=== PATIENT | female | born 1955 | race American Indian/Alaskan Native ===

== ENCOUNTER 2016-10-07 09:00 | Outpatient (CLI) | payer OTHER ==
--- NOTE | 2016-10-07 13:07 | Mammography Report ---
Screening mammogram: The patient is post breast reduction surgery. The breast pattern is generally fatty replaced. There is extensive number of rounded and generally homogeneous populations of calcifications in both breasts. No focal mass nor architectural distortion. The findings are unchanged compared to her prior study in 2014. CAD used. Impression: Stable breast pattern. Recommendation: Annual mammogram followup. BI-RADS CATEGORY: 1 = Negative ACR BI-RADS MAMMOGRAPHIC CODES: 0 = Needs additional imaging evaluation; 1 = Negative; 2 = Benign; 3 = Probably benign; 4 = Suspicious; 5 = Malignant; 6 = Known biopsy-proven malignancy COMMENT: 1. Dense breast tissue, i.e., adenosis, fibrocystic changes, etc., may obscure an underlying neoplasm. 2. Approximately 10% of cancers are not detected with mammography. 3. A negative mammography report should not delay biopsy if a clinically suspicious mass is present.
== END 2016-10-07 09:01 | disposition home or self-care (01) ==
LOC: MAMMO 09:00
PROVIDERS: ATTEND Family Medicine Adult Medicine
DX: Z12.31 Encounter for screening mammogram for malignant neoplasm of breast (principal)
CPT/HCPCS: 77067; G0202

== ENCOUNTER 2017-04-13 09:18 | Emergency (ER) | payer OTHER ==
[2017-04-13 10:05] LABS: Basophils % (Auto) 0.7 % (0.0-1.8); Eosinophils % (Auto) 2.3 % (0.0-4.3); Hematocrit 35.9 % (30.3-42.9); Hemoglobin 12.3 gm/dl (10.1-14.3); Mean Corpuscular HGB Conc 34 % (30-34); Mean Corpuscular Hemoglobin 31 pg (28-32); Mean Corpuscular Volume 89 fl (79-97); Platelet Count 239 K/mm3 (140-440); Red Blood Count 4.04 M/mm3 (3.65-5.03); Red Cell Distribution Width 13.7 % (13.2-15.2); White Blood Count 8.7 K/mm3 (4.5-11.0)
[2017-04-13 10:23] LABS: Albumin 4.1 g/dL (3.9-5); Albumin/Globulin Ratio 1.1 %; Bilirubin,Total 0.7 mg/dL (0.1-1.2); Potassium 4.3 mmol/L (3.6-5.0); Total Protein 7.9 g/dL (6.3-8.2)
[2017-04-13 11:10] LABS: Bilirubin,Urine NEG (Negative); Blood,Urine MOD (Negative); Ketones,Urine NEG (Negative); Leukocyte Esterase,Urine NEG (Negative); Mucus,Urine FEW /HPF; Nitrite,Urine NEG (Negative); Protein,Urine <15 mg/dL mg/dL (Negative); Urobilinogen,Urine < 2.0 mg/dL (<2.0)
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
[2017-04-13] MEDS ORDERED: TORADOL IV ONE (14:36)
[2017-04-13] MEDS ORDERED: ZOFRAN ODT PO ONE (14:37)
--- NOTE | 2017-04-13 14:59 | Cat Scan Report ---
FINAL REPORT PROCEDURE: CT ABDOMEN PELVIS WO CON TECHNIQUE: Computerized axial tomography of the abdomen and pelvis was performed without intravenous contrast. This study is performed without intravascular contrast material and its sensitivity for abdominal and pelvic pathology, including neoplasms, inflammation, abscess, free fluid, thrombosis, arterial dissection and infarction, is reduced compared with a contrast enhanced study. HISTORY: Right flank pain COMPARISON: No prior studies are available for comparison. FINDINGS: Visualized lower thorax: There is posterior pericardial thickening or fluid present, measuring up to 5 millimeters in thickness. Liver: Normal size and attenuation. Spleen: Normal size and attenuation. Gallbladder and biliary system: Calcified gallstones are present within the gallbladder lumen. No biliary ductal dilatation identified. Pancreas: Normal. Adrenals: Normal. Kidneys: There is moderate right hydronephrosis. The proximal ureter is significantly dilated. No ureteral calculi are seen. Right renal calculi are present, measuring up to 4 millimeters. Nonobstructive left renal calculi are present. Largest is in the left kidney lower pole, measuring up to 12 millimeters. No calculi are seen in the left ureter GI tract: Appendix is visualized and does not appear inflamed. Sutures are noted in the stomach. Lymph nodes and mesentery: Normal. Vasculature: Normal. Bladder: Normal. Reproductive organs: Uterus is not visualized. Peritoneum: No free fluid. Musculoskeletal structures: No significant abnormality. Other: None. IMPRESSION: There is significant right hydronephrosis and dilatation of the proximal right ureter. No ureteral calculi are seen. Although findings could be related to recently passed calculus, cannot exclude an obstructing ureteral lesion. No gross mass is seen, however recommend follow-up to exclude a ureteral stricture or mass causing obstruction. Bilateral renal calculi are present. Cholelithiasis. Pericardial thickening or fluid
[2017-04-13] MEDS ORDERED: NACL 0.9% 1000 ML 1,000 ML IV ONE (15:25)
[2017-04-13] MEDS ORDERED: FLOMAX PO ONE (17:00)
[2017-04-13 17:10] VITALS: BP 140/84
== END 2017-04-13 17:33 | disposition home or self-care (01) ==
LOC: ED 09:18
DX: N20.0 Calculus of kidney (principal); I10 Essential (primary) hypertension; Z98.890 Other specified postprocedural states; Z88.6 Allergy status to analgesic agent
CPT/HCPCS: 36415; 74176; 80053; 81001; 83690; 85025; 87086; 96361; 96374; 99284; J1885; J7030; Q0162

== ENCOUNTER 2017-04-17 09:59 | Day surgery (SDC) | payer OTHER ==
[~2017-04-17 09:59] MED LIST: ANCEF/STERILE WATER 2 GM/20 ML IV NR
--- NOTE | 2017-04-17 10:54 | Anesthesia Day of Surgery ---
Anesthesia Day of Surgery - Day of Surgery Patient Examined: Yes Patient H&P Reviewed: Yes Patient is NPO: Yes
--- NOTE | 2017-04-17 10:54 | Anesthesia Consultation ---
Anesthesia Consult and Med Hx Date of service: 04/17/17 - Airway Anesthetic Teeth Evaluation: Good ROM Head & Neck: Adequate Mental/Hyoid Distance: Adequate Mallampati Class: Class II Intubation Access Assessment: Probably Good - Pulmonary Exam CTA: Yes - Cardiac Exam Cardiac Exam: RRR - Pre-Operative Health Status ASA Pre-Surgery Classification: ASA2 Proposed Anesthetic Plan: General - Pulmonary Hx Smoking: No Hx Sleep Apnea: Yes (DX SLEEP APNEA WITH CPAP USE) - Cardiovascular System Hx Hypertension: No Hx Heart Murmur: Yes (CAUSES NO PROBLEMS) - Endocrine Hx Non-Insulin Dependent Diabetes: No - Hematic Hx Anemia: Yes (NOT RECENT) - Other Systems Hx Cancer: No
[2017-04-17] MEDS ORDERED: LACTATED RINGERS 1,000 ML IV SCH (11:00)
[2017-04-17] MEDS ORDERED: VERSED IV NR (11:00)
[2017-04-17] MEDS ORDERED: PEPCID PO NR (12:00)
--- NOTE | 2017-04-17 12:06 | Short Stay Summary ---
Short Stay Documentation Date of service: 04/17/17 - History H&P: obtained from office - Allergies and Medications Current Medications: Allergies hydrocodone Allergy (Verified 04/15/17 10:49) Shortness of Breath oxycodone [From Percocet] Allergy (Verified 04/15/17 10:49) Shortness of Breath SOB AND ITCHING Home Medications Medication Instructions Recorded Confirmed Last Taken Type Omeprazole Magnesium [PriLOSEC Otc] 20 mg PO QDAY #14 tablet.dr 04/15/16 Unknown Rx Ondansetron [Zofran TAB] 4 mg PO Q6HR PRN #14 tablet 04/15/16 04/15/17 Unknown Rx Tamsulosin HCl [Flomax] 0.4 mg PO DAILY #10 cap.er.24h 04/13/17 04/15/17 Unknown Rx traMADol [Ultram] 50 mg PO Q6HR PRN #20 tablet 04/13/17 04/15/17 Unknown Rx Tobramycin/Lotepred Etab [Zylet 1 - 2 drop OP TID 04/15/17 04/15/17 Unknown History Eye Drops 0.5/0.3%] Travoprost [Travatan Z] 1 drop OP QHS 04/15/17 04/15/17 Unknown History Active Medications Cefazolin Sodium (Ancef/Sterile Water 2 Gm/20 Ml) 2 gm IV PREOP NR Stop: 04/17/17 23:00 Lactated Ringer's (Lactated Ringers) 1,000 mls @ 100 mls/hr IV DIRECT LUIS Last Admin: 04/17/17 11:55 Dose: 100 mls/hr Midazolam HCl (Versed) 2 mg IV PREOP NR Stop: 04/17/17 23:59 Last Admin: 04/17/17 11:57 Dose: 2 mg - Brief post op/procedure progress note Date of procedure: 04/17/17 Pre-op diagnosis: toño renal stones, right hydro/pain Post-op diagnosis: other Procedure: cysto,bilr rpg, right urs, stent 6x26, left eswl Anesthesia: GETA Findings: right upj stenosis, left lower pole stone Surgeon: GREGORIO VAZ Estimated blood loss: none Condition: stable - Hospital course Hospital course: or pacu home - Disposition Condition at discharge: Good Disposition: DC-01 TO HOME OR SELFCARE Short Stay Discharge Plan Activity: advance as tolerated Diet: advance as tolerated Follow up with: ZAYDA VIRK MD [Staff Physician] - 7 Days
[2017-04-17] MEDS ORDERED: ZOFRAN ONE ×2 (13:52→17:39)
[2017-04-17] MEDS ORDERED: XYLOCAINE MPF 2% ONE (13:52)
[2017-04-17] MEDS ORDERED: SUBLIMAZE ONE ×2 (13:52→15:10)
[2017-04-17] MEDS ORDERED: DIPRIVAN 10 MG/ML IV ONE (13:53)
[2017-04-17] MEDS ORDERED: LACTATED RINGERS 1,000 ML ONE (14:33)
[2017-04-17] MEDS ORDERED: WATER FOR IRRIG STERILE IR ONE (14:45)
[2017-04-17] MEDS ORDERED: ePHEDrine SULFATE ONE (15:22)
[2017-04-17] MEDS ORDERED: ZOFRAN IV PRN (17:53)
[2017-04-17 18:11] VITALS: BP 163/89
--- NOTE | 2017-04-17 19:22 | Post Anesthesia Evaluation ---
- Post Anesthesia Evaluation Patient Participated: Yes Airway Patent: Yes Stable Respiratory Function: Yes Nausea/Vomiting: No Temp > 96.8F: Yes Pain Manageable: Yes Adequeate Hydration: Yes Anesthesia Complications: No Block Receding Appropriately: Not Applicable Patient on Ventilator: No
--- NOTE | 2017-04-18 09:01 | Operative Report ---
PREOPERATIVE DIAGNOSES: 1. Right hydronephrosis. 2. Right flank pain. 3. Left renal lower pole 12 mm stone. POSTOPERATIVE DIAGNOSES: 1. Right hydronephrosis. 2. Right ureteropelvic junction obstruction. 3. Rectocele. 4. Left renal lower pole stone. 5. Radiopaque density at the level at L3 medial to the left ureter on retrograde. PROCEDURES: 1. Bilateral RPG, right ureteroscopy, flexible and rigid and right stent placement 6 x 26 double J staged for future removal for the diagnosis of right hydronephrosis and flank pain. 2. Left renal ESWL for the diagnosis of left renal stone. SURGEON: Tristen Garnica M.D. ANESTHESIA: General. SPECIMENS: None. ESTIMATED BLOOD LOSS: Minimal. COMPLICATIONS: None. IMPLANTS: None. FINDINGS: On right ureteroscopy, the UPJ appeared to be stenosed with [id number] stricture likely chronic. Inspection of the anterior upper and lower pole calyces, renal pelvis, and ureter demonstrated no tumors or lesions or no suspicious area. On fluoroscopy, there was at the level of L3 a radiopaque density that appeared to be possible left ureteral stone. Retrograde ureterogram confirmed that this radiopaque density was medial to the left ureter and there is only a stone in the lower pole. CLINICAL INDICATIONS: The patient was counseled by her primary urologist and by me. Films were all reviewed, coordinated plan, had antibiotics and SCDs and the patient desired to proceed. The patient was having right flank pain. DESCRIPTION OF PROCEDURE: The patient was transferred to the OR suite in supine position, placed in the cystoscopy suite in supine position, anesthesia, dorsal lithotomy, prepped and draped in standard fashion. At this point, a 22-[place] cystoscope was passed. Pancystoscopy with 30- and 70-degree lens demonstrated no tumors, lesions, or other abnormality. Retrograde pyelogram confirmed with 8-[place] cone tip catheter. Contrast demonstrated normal left distal ureter. As we approached the proximal ureter, there was a narrowing with a dilated, long UPJ or proximal ureter with hydronephrosis and dilated calices moderate to severe. At this point, a Glidewire was passed up to the right renal pelvis. A rigid ureteroscope was passed. We were able to pass this up the entire ureter. Inspection demonstrated no tumors, lesions, or other abnormality. Once we got to this narrow portion, there was no papillary or erythema or suspicious lesion that more tissue was white, more like a scar with mild stricture. We were able to pass the rigid scope beyond this and we were into the renal pelvis, we could easily see the renal pelvis with this dilated port either its long UPJ or just a portion of the proximal ureter. At this point, a second wire was passed and right renal fluid aspirated and renal pelvis decompressed. We then passed the second Glidewire. Flexible ureteroscope was passed. We inspected the upper and lower pole calyces and renal pelvis. There was no abnormality identified. No tumors, lesions, or other abnormality proximal to the narrowed portion of the UPJ ureter. There was no lesion or other abnormality both on flexible scope or rigid scope. The scope was slowly withdrawn and inspected this narrowed area again above proximal and distal with no suspicious lesion. Scope was withdrawn. I inspected the ureter on the way down. No abnormal lesions and no stenosis beyond that point. At this point, the wire was backloaded on cystoscope. A 6 x 26 double-J stent was passed over the wire under direct and fluoroscopic visualization. When the wire and string were removed, nice proximal and distal J staged for future removal. At this point, we did see at the L3 level a radiopaque density and we felt that she may have a left ureteral stone. Contrast was injected gently and the ureter filled and this radiopaque density was medial to the left ureter. At this point, the patient was placed back in the supine position after being cleaned. She was transferred to the [facility] and transferred from the cystoscopy suite to room 5 to the lithotripter suite to treat her second diagnosis. At this point, the patient was placed on the table in the supine position. Biplanar fluoroscopy was used to target the stone on the left side, the opposite side, in the lower pole. A total of 2500 shocks were delivered at a maximum of 5.0 kilovolts. Intermittent repositioning was done as necessary to keep the stone with an F2 given the size of the stone. There was good result or significant spreading which appeared from the fragmentation. By the end of the procedure, the patient was awakened and transferred to PACU in good and stable condition. JOB# [id number] ATS/NTS
--- NOTE | 2017-04-19 10:36 | Fluoroscopy Report ---
14 FLUOROSCOPIC IMAGES AT RIGHT RETROGRADE PYELOGRAM: 04/17/17 CLINICAL: Ureteral stone. FINDINGS: Early Intervention Specialist images demonstrate a probable left renal calculus and a probable calculus in the mid left ureter at the L3 level. Subsequent images demonstrate retrograde opacification of a moderately dilated right intrarenal collecting system and placement of a right ureteral stent. Retrograde opacification demonstrates a nondilated left ureter. The calcification at L3 does not appear to be in the ureter. However, the ossification the left upper quadrant appears to be in a left lower pole calyx. For more detail, please refer to the operative report.
== END 2017-04-17 10:00 | disposition home or self-care (01) ==
LOC: OR 09:59
PROVIDERS: ATTEND Urology
DX: N13.2 Hydronephrosis with renal and ureteral calculous obstruction (principal); N81.6 Rectocele; Z88.1 Allergy status to other antibiotic agents
CPT/HCPCS: 50590; 52332; 74420; A4217; C1758; C1769; C2617; J0690; J2250; J2405; J2704; J3010; J7120; Q9967

== ENCOUNTER 2017-10-08 09:40 | Outpatient (CLI) | payer OTHER ==
--- NOTE | 2017-10-08 14:16 | Mammography Report ---
Screening mammogram: Routine views demonstrate a generally fatty replaced pattern. Diffuse benign-appearing calcifications are present throughout both breasts. There is no nodule no architectural distortion. No significant change since prior exams in 2015. CAD used. Impression: Stable exam. Recommendation: Annual mammogram followup. BI-RADS CATEGORY: 1 = Negative ACR BI-RADS MAMMOGRAPHIC CODES: 0 = Needs additional imaging evaluation; 1 = Negative; 2 = Benign; 3 = Probably benign; 4 = Suspicious; 5 = Malignant; 6 = Known biopsy-proven malignancy COMMENT: 1. Dense breast tissue, i.e., adenosis, fibrocystic changes, etc., may obscure an underlying neoplasm. 2. Approximately 10% of cancers are not detected with mammography. 3. A negative mammography report should not delay biopsy if a clinically suspicious mass is present.
== END 2017-10-08 09:41 | disposition home or self-care (01) ==
LOC: MAMMO 09:40
PROVIDERS: ATTEND Family Medicine Adult Medicine
DX: Z12.31 Encounter for screening mammogram for malignant neoplasm of breast (principal)
CPT/HCPCS: 77067

== ENCOUNTER 2018-01-12 06:05 | Day surgery (SDC) | payer OTHER ==
[2018-01-12] MEDS ORDERED: NACL BACTERIOSTATIC INFILTRATI ONE (07:01)
[2018-01-12] MEDS ORDERED: ANCEF/STERILE WATER 2 GM/20 ML IV NR (07:15)
[2018-01-12] MEDS ORDERED: XYLOCAINE MPF 2% ONE (07:18)
[2018-01-12] MEDS ORDERED: DILAUDID ONE ×2 (07:18→09:25)
[2018-01-12] MEDS ORDERED: ZOFRAN ONE (07:18)
[2018-01-12] MEDS ORDERED: DIPRIVAN 10 MG/ML IV ONE (07:18)
[2018-01-12] MEDS ORDERED: DECADRON ONE (07:19)
--- NOTE | 2018-01-12 07:26 | Anesthesia Consultation ---
Anesthesia Consult and Med Hx Date of service: 01/12/18 - Airway Anesthetic Teeth Evaluation: Good ROM Head & Neck: Adequate Mental/Hyoid Distance: Adequate Mallampati Class: Class II Intubation Access Assessment: Probably Good - Pre-Operative Health Status ASA Pre-Surgery Classification: ASA2 Proposed Anesthetic Plan: General - Pulmonary Hx Smoking: No Hx Sleep Apnea: Yes (DX SLEEP APNEA WITH CPAP USE) - Cardiovascular System Hx Hypertension: No Hx Heart Murmur: Yes (CAUSES NO PROBLEMS) Hx Peripheral Vascular Disease: Yes (RAYNAUD'S SYNDROME) - Central Nervous System Hx Back Pain: Yes (arthritis right shoulder) - Gastrointestinal Hx Ulcer: Yes (PT REPORTS SHE HAS BEEN PUT ON MEDS FOR ULCER SYMPTOMS) - Endocrine Hx Non-Insulin Dependent Diabetes: No - Hematic Hx Anemia: Yes (NOT RECENT) - Other Systems Hx Cancer: No
--- NOTE | 2018-01-12 07:27 | Anesthesia Day of Surgery ---
Anesthesia Day of Surgery - Day of Surgery Patient Examined: Yes Patient H&P Reviewed: Yes Patient is NPO: Yes
[2018-01-12] MEDS ORDERED: LACTATED RINGERS 1,000 ML IV SCH (08:00)
[2018-01-12] MEDS ORDERED: VERSED IV NR (08:00)
--- NOTE | 2018-01-12 09:05 | Short Stay Summary ---
Short Stay Documentation Date of service: 01/12/18 - History H&P: obtained from office - Allergies and Medications Current Medications: Allergies hydrocodone Allergy (Verified 04/15/17 10:49) Shortness of Breath oxycodone [From Percocet] Allergy (Verified 04/15/17 10:49) Shortness of Breath SOB AND ITCHING Home Medications Medication Instructions Recorded Confirmed Last Taken Type Ondansetron [Zofran TAB] 4 mg PO Q6HR PRN #14 tablet 04/15/16 01/12/18 01/06/18 Rx Tamsulosin HCl [Flomax] 0.4 mg PO DAILY #10 cap.er.24h 04/13/17 01/12/18 09:00 Rx traMADol [Ultram] 50 mg PO Q6HR PRN #20 tablet 04/13/17 01/12/18 01/06/18 Rx Travoprost [Travatan Z] 1 drop OP QHS 04/15/17 01/12/18 01/11/18 History Cholecalciferol (Vitamin D3) 2,000 unit PO DAILY 01/06/18 01/12/18 01/06/18 History [Vitamin D3] Diclofenac Dr [Voltaren Dr] 75 mg PO BID 01/06/18 01/12/18 01/06/18 History Fluticasone [Flonase] 1 spray NS QDAY 01/06/18 01/12/18 01/06/18 History Hydromorphone HCl [Dilaudid] 4 mg PO Q4HR PRN 01/12/18 01/12/18 01/06/18 History Hyoscyamine Sulfate [Hyoscyamine 0.125 mg PO BID PRN 01/12/18 01/12/18 01/06/18 History Rapdis 0.125 mg] Latanoprost 0.005% 1 drop OU QHS 01/12/18 01/12/18 01/11/18 History Levocetirizine Dihydrochloride 5 mg PO DAILY 01/12/18 01/12/18 01/06/18 History [Xyzal] Omeprazole Magnesium [PriLOSEC Otc] 40 mg PO QDAY 01/12/18 01/12/18 01/06/18 History PARoxetine MESYLATE [Brisdelle] 7.5 mg PO QHS 01/12/18 01/12/18 01/06/18 History Ranitidine HCl [Zantac 300 MG TAB] 300 mg PO QPM 01/12/18 01/12/18 01/06/18 History Tobramycin/Lotepred Etab [Zylet 1 drop OP TID 01/12/18 01/12/18 01/11/18 History Eye Drops] Active Medications Cefazolin Sodium (Ancef/Sterile Water 2 Gm/20 Ml) 2 gm IV PREOP NR Stop: 01/12/18 15:00 Lactated Ringer's (Lactated Ringers) 1,000 mls @ 100 mls/hr IV DIRECT LUIS Last Admin: 01/12/18 07:27 Dose: 100 mls/hr Midazolam HCl (Versed) 2 mg IV PREOP NR Stop: 01/12/18 23:59 Last Admin: 01/12/18 07:29 Dose: 2 mg - Brief post op/procedure progress note Date of procedure: 01/12/18 Pre-op diagnosis: rt ureteral stone Post-op diagnosis: other (rt renal stone) Procedure: cysto, rpg, rt ureteroscopy, laser stone, stent with external string Anesthesia: JOEL Surgeon: ZAYDA VIRK Estimated blood loss: none Condition: stable - Hospital course Hospital course: cipro, ultram, & Dilaudid on chart - Disposition Condition at discharge: Stable Disposition: DC-01 TO HOME OR SELFCARE Short Stay Discharge Plan Follow up with: DAVID LOAIZA MD [Primary Care Provider] - 7 Days
[2018-01-12] MEDS ORDERED: OMNIPAQUE 300 MG/50 ML (CATH LAB) IV ONE (09:14)
[2018-01-12] MEDS ORDERED: WATER FOR IRRIG STERILE IR ONE ×2 (09:14→09:15)
[2018-01-12] MEDS ORDERED: ZOFRAN IV PRN (09:25)
[2018-01-12] MEDS: DILAUDID IV PRN ×2 (09:25→09:37)
--- NOTE | 2018-01-12 09:34 | Post Anesthesia Evaluation ---
- Post Anesthesia Evaluation Patient Participated: Yes Airway Patent: Yes Stable Respiratory Function: Yes Nausea/Vomiting: No Temp > 96.8F: Yes Pain Manageable: Yes Adequeate Hydration: Yes Anesthesia Complications: No
[2018-01-12] MEDS ORDERED: DILAUDID PO SCH (10:21)
[2018-01-12 18:07] VITALS: BP 135/78
--- NOTE | 2018-01-13 07:36 | Fluoroscopy Report ---
FLUOROSCOPY RETROGRADE UROGRAPHY: HISTORY: Right renal stone. FINDINGS: Fluoroscopy was provided by radiology during retrograde urography by the urologist. 12 fluoroscopic images were captured. Many of the images are limited by motion artifact. An approximate 8 mm calcification overlies the mid right renal shadow. Following the injection of contrast into the right renal collecting system a right renal stone is confirmed. Per the operative note, a holmium laser was utilized to break up the stone. Right ureteroscopy was performed. A right ureteral stent was placed which adequately drains the right collecting system on the final images. The left pyelogram is unremarkable IMPRESSION: Right renal stone. Right ureteral stent placement
--- NOTE | 2018-01-16 09:29 | Operative Report ---
PREOPERATIVE DIAGNOSES: Bilateral flank pain, right ureteral stone. POSTOPERATIVE DIAGNOSES: Bilateral flank pain, right ureteral stone. Right renal stone. PROCEDURE: Cystoscopy, bilateral retrograde pyelograms, flexible ureteroscopy, holmium laser lithotripsy, double-J stent placement (6-Z[place]an 24 cm with an external string, staged procedure). SURGEON: Tristan Pruett MD ANESTHESIA: General. ESTIMATED BLOOD LOSS: Minimal. FLUIDS: Crystalloid. COMPLICATIONS: No complications. INDICATIONS: This patient is a 62-year-old female known to our service with a history of kidney stones, status post lithotripsy in the past. She was seen in the office earlier this month, worsening pain. CT of abdomen and pelvis suggested a left ureteral stone. She also has a history of degenerative joint disease. She presents now for intervention. DESCRIPTION OF PROCEDURE: The patient was taken to the operative suite, placed in supine position. After adequate general anesthesia, placed in a dorsal lithotomy position, prepped and draped in a sterile fashion. Pancystourethroscopy was performed with 22-Z[place] Storz cystoscope. No bladder pathology. Both ureteral orifices in normal position. Bilateral retrograde pyelograms were obtained with an 8 [place]an Butler catheter and 8 mL of contrast. No filling defects or obstruction on the left. Right side approximately 8 mm mid pole renal stone. A 0.035 Glidewires were placed. Flexible ureteroscopy up into the renal pelvis could be appreciated. The stone was localized. A 200 micron holmium fiber used to identify the stone. Laser lithotripsy started at 4 marie and up to 6 marie was performed. Fragmentation of the stone to be appreciated due to some tedious bleeding, could not appreciate the stone and at that point, I completed the procedure. A 6-Z[place]an 24 cm double-J stent was placed on the fluoroscopy with an external string. The patient tolerated the procedure well. She was extubated and taken to recovery room in stable condition. She may require lithotripsy. JOB# [id number] GABRIELLE/KRALOS
== END 2018-01-12 11:57 | disposition home or self-care (01) ==
LOC: OR 06:05
PROVIDERS: ATTEND Urology
DX: N20.2 Calculus of kidney with calculus of ureter (principal); I10 Essential (primary) hypertension; I73.00 Raynaud's syndrome without gangrene; M19.011 Primary osteoarthritis, right shoulder; G47.30 Sleep apnea, unspecified; Z99.89 Dependence on other enabling machines and devices; Z88.5 Allergy status to narcotic agent; Z79.899 Other long term (current) drug therapy
CPT/HCPCS: 74420; A4217; C1758; C1769; C2617; J0690; J1100; J1170; J2250; J2405; J2704; J7120; Q9967

== ENCOUNTER 2018-10-09 06:45 | Outpatient (CLI) | payer OTHER ==
--- NOTE | 2018-10-09 09:27 | Mammography Report ---
BILATERAL DIGITAL SCREENING MAMMOGRAM with CAD: 10/09/18 06:45:00 CLINICAL: Routine screening.History of reduction mammoplasty. COMPARISON:10/08/17 FINDINGS: The breasts are almost entirely fatty.Bilateral scattered benign calcifications. No mass, architectural distortion or suspicious calcifications. IMPRESSION: No mammographic evidence of malignancy. BI-RADS CATEGORY: 2 -- Benign RECOMMENDATION: Routine mammographic screening in one year. COMMENT: Patient follow-up letters are generated by our [employer] application.
== END 2018-10-09 06:46 | disposition home or self-care (01) ==
LOC: MAMMO 06:45
PROVIDERS: ATTEND Family Medicine Adult Medicine
DX: Z12.31 Encounter for screening mammogram for malignant neoplasm of breast (principal)
CPT/HCPCS: 77067

== ENCOUNTER 2020-02-17 08:51 | Day surgery (SDC) | payer OTHER ==
[~2020-02-17 08:51] MED LIST changes: -ANCEF/STERILE WATER 2 GM/20 ML IV NR; +LACTATED RINGERS 1,000 ML IV SCH; +MIDAZOLAM 2 MG/2 ML INJ IV NR; +ceFAZolin/STERILE WATER 2 GM/20 ML SYRINGE IV NR
--- NOTE | 2020-02-17 09:52 | Anesthesia Consultation ---
Anesthesia Consult and Med Hx Date of service: 02/17/20 - Airway Anesthetic Teeth Evaluation: Good ROM Head & Neck: Adequate Mental/Hyoid Distance: Adequate Mallampati Class: Class II Intubation Access Assessment: Probably Good - Pulmonary Exam CTA: Yes - Cardiac Exam Cardiac Exam: RRR - Pre-Operative Health Status ASA Pre-Surgery Classification: ASA2 Proposed Anesthetic Plan: General - Pulmonary Hx Smoking: No Hx Respiratory Symptoms: No Hx Sleep Apnea: Yes (compliant with CPAP) - Cardiovascular System Hx Hypertension: No (no official diagnosis and no rx. States occasionally elevated.) Hx Heart Attack/AMI: No Hx Percutaneous Transluminal Coronary Angioplasty (PTCA): No Hx Cardia Arrhythmia: No Hx Peripheral Vascular Disease: Yes (Raynaud's syndrome) - Central Nervous System CVA: No - Gastrointestinal Hx Gastroesophageal Reflux Disease: Yes - Endocrine Hx Renal Disease: No Hx Liver Disease: No Hx Insulin Dependent Diabetes: No Hx Non-Insulin Dependent Diabetes: No Hx Thyroid Disease: No - Other Systems Hx Obesity: No
--- NOTE | 2020-02-17 09:52 | Anesthesia Day of Surgery ---
Anesthesia Day of Surgery - Day of Surgery Patient Examined: Yes Patient H&P Reviewed: Yes Patient is NPO: Yes
[2020-02-17] MEDS ORDERED: MIDAZOLAM 2 MG/2 ML INJ IV NR (14:22)
[2020-02-17 16:37] VITALS: BP 104/56
== END 2020-02-17 08:52 | disposition home or self-care (01) ==
LOC: OR 08:51
PROVIDERS: ATTEND Urology
DX: N20.0 Calculus of kidney (principal); Z53.8 Procedure and treatment not carried out for other reasons; H40.9 Unspecified glaucoma; I73.9 Peripheral vascular disease, unspecified; I10 Essential (primary) hypertension; G47.30 Sleep apnea, unspecified; K21.9 Gastro-esophageal reflux disease without esophagitis; M19.90 Unspecified osteoarthritis, unspecified site; Z88.5 Allergy status to narcotic agent; Z88.8 Allergy status to other drugs, medicaments and biological substances; Z79.899 Other long term (current) drug therapy; Z98.42 Cataract extraction status, left eye; Z90.710 Acquired absence of both cervix and uterus; Z98.890 Other specified postprocedural states; Z86.2 Personal history of diseases of the blood and blood-forming organs and certain disorders involving the immune mechanism
CPT/HCPCS: J2250; J7120; J0690